=== PATIENT | female | born 1970 | race Caucasian/White ===

== ENCOUNTER 2020-09-13 05:45 | Day surgery (SDC) | payer BC ==
[~2020-09-13] VITALS: Ht 162.6 cm; Wt 91.8 kg
[~2020-09-13 05:45] MED LIST: IRON18 MG; SUDOGEST30 MG PO; ZYRTEC10 M3 PO
[2020-09-13] MEDS ORDERED: IBUPROFEN200 M1 PO (06:10)
[2020-09-13] MEDS ORDERED: AMINO ACID1 EACH PO (06:11)
[2020-09-13] MEDS ORDERED: PROBIOTIC1 EAC1 PO (06:11)
--- NOTE | 2020-09-13 09:27 | NUR ---
CONNECTED WITH PTS' [facility]. JUST GETTING READY TO HEAD HOME TO CARE FOR CHILDREN, THEN RETURN. FEW QUESTIONS, REQUESTED PRAYER. WILL FOLLOW
--- NOTE | 2020-09-13 09:46 | NUR ---
09/13/20 0946 Lee Ann Diaz 0919 PT ARRIVED IN PACU NON RESPONSIVE TO NOXIOUS STIMULI. CHIN LIFT HELD BY RN. 0930 PT REACTIVE. NO CHIN LIFT REQUIRED AT THIS TIME. FALLS BACK TO SLEEP AFTER OPENING EYES. 0945 RESTING. REU. OCC SNORING.
--- NOTE | 2020-09-13 10:19 | NUR ---
PT ARRIVED FROM PACU. REPORT RECIEVED FROM NAZARIO Warren RN. PT RESTING IN LOCKED AND LOWERED BED, SIDE RAILS UP, CALL LIGHT WITHIN REACH. AT THE BEDSIDE. ICE CHIPS PROVIDED, NO FURTHER REQUESTS AT THIS TIME.
--- NOTE | 2020-09-13 11:15 | NUR ---
IN FOR HOURLY ASSESSMENT. PT GABRIEL DISCONTINUED AND OUTPUT MEASURED. PT PROVIDED WITH PUDDING, ICE CHIPS, AND ICE WATER. PT RESTING IN LOCKED AND LOWERED BED, SIDE RAILS UP, CALL LIGHT WITHIN REACH. AT THE BEDSIDE. NO FURTHER REQUESTS AT THIS TIME.
--- NOTE | 2020-09-13 11:50 | NUR ---
PT UP TO USE THE RESTROOM WITH 1 PERSON ASSIST. PT VOIDED 600ML WITH NO COMPLICATIONS. RED DRAINAGED NOTED FROM UMBILICAL SITE UPON AMBULATION. SITE REINFORCED WITH GAUZE AND OPSITE. PT NOW RESTING IN LOCKED AND LOWERED BED, SIDE RAILS UP, CALL LIGHT WITHIN REACH, AT THE BESIDE. DISCHARGE CRITERIA DISCUSSED. NO FURTHER REQUESTS AT THIS TIME.
[2020-09-13] MEDS ORDERED: PERCOCET 5-3251 EACH PO (12:08)
[2020-09-13] MEDS ORDERED: MOTRIN IB200 MG PO (12:08)
[2020-09-13] MEDS ORDERED: ZOFRAN4 MG PO (12:09)
--- NOTE | 2020-09-13 12:50 | NUR ---
DISCHARGE INSTRUCTIONS DISCUSSED WITH PT AND . QUESTIONS AND CONCERNS ADDRESSED. PT LEFT THE UNIT VIA WHEELCHAIR. PT TRANSFERRED INDEPENDENTLY FROM WHEELCHAIR TO VEHICLE WITH NO COMPLICATIONS. TRANSPORTATION PROVIDED BY [facility].
--- NOTE | 2020-09-18 10:20 | PATH ---
[facility] [address] [place], [place] [address] Signed SPECIMEN(S): A UTERUS, CERVIX AND TUBES SPECIMEN SOURCE: A. UTERUS, CERVIX AND TUBES CLINICAL HISTORY: Menorrhagia; incomplete uterovaginal prolapse. Please look for adenomyosis. TLH, BS FINAL PATHOLOGIC DIAGNOSIS: Uterus, cervix, and bilateral fallopian tubes, hysterectomy and bilateral salpingectomy: - Cervix: Chronic inflammation and reactive changes. - Endometrium: Proliferative endometrium. - Myometrium: Adenomyosis. - Serosa: No histopathologic abnormality. - Fallopian tubes: Paratubal cysts. - Negative for malignancy. NAL:cml:C2NR MICROSCOPIC EXAMINATION: Histologic sections of all submitted blocks are examined by light microscopy. These findings, together with the gross examination, support the pathologic diagnosis. GROSS DESCRIPTION: The specimen, labeled "TB," and designated on the requisition "cervix, uterus, bilat fallopian tubes," is received in formalin and consists of a uterus with attached cervix and two detached, fimbriated fallopian tube segments. The uterus with attached cervix weighs 197 g and measures 11.3 x 8.1 x 5.6 cm. The uterine serosa is zepeda, smooth, glistening. The orientation of the uterus is grossly indeterminate. The ectocervical tissue is zepeda, smooth, and occupies a 3.4 x 3.3 cm area. The external os is oval, patent, and 1.7 cm in diameter. The internal os is patent and the cervical stroma is grossly unremarkable. The triangular endometrial cavity measures 5.1 x 2.7 cm. The dark red endometrium is up to 0.1 cm thick. The zepeda, rubbery myometrium is up to 2.6 cm thick and without a discrete mass/lesion. The two fimbriated fallopian tube segments are undesignated, zepeda-purple, have a PATIENT NAME: ANGEL SNYDER PATHOLOGY DATE OF : 74 REPORT #: [id number] PHYSICIAN: NOLA PATHOLOGY PCP: CALI STOCK PAC REPORT IS CONFIDENTIAL AND NOT TO BE RELEASED WITHOUT AUTHORIZATION [facility] [address] [place], [place] [address] Signed patent lumen, and multiple clear fluid-filled, paratubal cysts from less than 0.1-0.7 cm in greatest dimension. The first is inked blue, 5.5 cm long, and 0.7 cm in diameter. The second is 6.0 cm long, and 0.8 cm in diameter. Pediatric Oncology Nurse sections are submitted as follows: (A1-A2) - cervix (A3-A4) - uterine wall (A5) - tubes AI (under the direct supervision of a pathologist) Additional sections of myometrium are submitted in cassette A6-A7 at the request of Dr. Rohan VALE (under the direct supervision of a pathologist) The Gross Description was prepared using a voice recognition system. The report was reviewed for accuracy; however, sound-alike word errors, addition and/or deletions may occur. If there is any question about this report, please contact Client Services. PERFORMING LABORATORY: The technical component was performed by [facility], [address] [place] [id number] (Intake Coordinator: Emily Dumont MD; CLIA# [id number]). [facility] [address], [address] [address] (CLIA# [id number]). Diagnostician: Yandy Madrigal MD Pathologist Electronically Signed 09/18/2020 Copies: ~ PATIENT NAME: ANGEL SNYDER PATHOLOGY DATE OF : 74 REPORT #: [id number] PHYSICIAN: NOLA CHUNG PCP: CALI STOCK PAC REPORT IS CONFIDENTIAL AND NOT TO BE RELEASED WITHOUT AUTHORIZATION
--- NOTE | 2020-09-20 18:30 | OR ---
[facility] [address] [place], [place] [address] Signed DATE OF OPERATION: 09/13/2020 SURGEON: Valeri Lynn MD PRIMARY SPECIAL EDUCATION TEACHER: Nadir Logan D.O. PREOPERATIVE DIAGNOSES: 1. Menorrhagia. 2. Iron-deficiency anemia. POSTOPERATIVE DIAGNOSES: 1. Menorrhagia. 2. Iron-deficiency anemia. 3. Pending pathology. PROCEDURES: 1. Total laparoscopic hysterectomy with bilateral salpingectomy. 2. Cystoscopy. ANESTHESIA: General ET. ESTIMATED BLOOD LOSS: Approximately 75 mL. DRAINS: Randle catheter. INDICATIONS AND FINDINGS: The patient is a 50-year-old female, who has a long history of severe menorrhagia. She has also had significant iron-deficiency anemia. She has required long-term iron therapy as well as several transfusions for her anemia. She was tried with control pills, which had minimal impact on her bleeding, it also impacted her diabetes negatively. She did not wish to undergo a trial of the Mirena. She wished to undergo surgical intervention. At the time of surgery, her uterus was top-normal size, it sounded to 11 cm. The pelvis itself was completely normal. DESCRIPTION OF PROCEDURE: The patient was prepped and draped in the dorsal lithotomy position. A weighted Electronically Signed By: VALERI LYNN MD 09/20/20 1830 PATIENT NAME: ANGEL SNYDER OPERATIVE REPORT DATE OF : 74 REPORT #: [id number] PHYSICIAN: VALERI LYNN MD PCP: KIYA STOCK PAC REPORT IS CONFIDENTIAL AND NOT TO BE RELEASED WITHOUT AUTHORIZATION [facility] [address] [place], [place] [address] Signed speculum was placed and the anterior lip of the cervix was visualized and grasped with a single-tooth tenaculum. The uterus was sounded to 11 cm. The endocervical canal was then dilated, and the VCare cannula inserted and the balloon inflated at the fundus. The tenaculum and speculum removed and the cup was fitted over the cervix and a locking cap was fitted into place. Attention was then directed above. The infraumbilical area was injected with 0.5% Marcaine plain. An incision was made with a knife. Each layer was then serially elevated and incised until the fascia was opened and identified and stay sutures were placed. The peritoneum was opened sharply and a Romeo cannula was placed and the balloon inflated and tied into place. Placing the scope, confirmed proper positioning. CO2 was then introduced into the abdomen. When the abdomen was appropriately distended, the secondary ports were placed, these were placed laterally. These were placed slightly below the level of the umbilicus. These areas were transilluminated, injected with the Marcaine, incision made with a knife and the trocars placed under direct vision. The left port was a 5 mm port. The right was a Veress needle, followed by the expanding port. Following this, the pelvis was visualized, the planned procedure appeared appropriate. The patient's left tube was then grasped and it was excised by serially coagulating and dividing the mesosalpinx using the LigaSure [place] device. It was transected at the cornu and removed through the right port. Following this, the patient's left round ligament and utero-ovarian ligament were serially coagulated and divided. At this point, the anterior leaf of the peritoneum was incised allowing for partial creation of the bladder flap. The peritoneum was taken down posteriorly as well. She had a very large bundle of the uterine vessels, and these were serially coagulated and divided as well. Further dissection was done both posteriorly and anteriorly. Following this, attention was directed to the right side. The tube was removed by serially coagulating and dividing the mesosalpinx and dividing at the cornua. The round ligament was serially coagulated and divided, followed by the utero-ovarian pedicle. The anterior leaf of the peritoneum was then incised allowing for final creation of the bladder flap. The peritoneum was taken down posteriorly as well. The uterine vessels again had a very large bundle, and these were coagulated and divided with good hemostasis noted. Further dissection was done both posteriorly and anteriorly and it was felt at that point that the specimen could be removed. The pelvis was irrigated and all blood removed at this point. The Sonicision device was used to excise the specimen. It was begun posteriorly and wrapped around to the patient's left side anteriorly and again posteriorly and around anteriorly. Following this, the cervix was grasped and the specimen was removed intact vaginally. Following this, a lap was placed into a glove and placed into the vagina to allow the pneumoperitoneum to reform. Attention was directed above again, and the abdomen was copiously irrigated and inspected. There was some bleeding points near the patient's right uterine vessels, and this was controlled using the spatula tip cautery. The cuff itself was then closed using the Endo Stitch. It was begun at the patient's right uterosacral ligament, taking care to incorporate the vaginal mucosa both posteriorly and anteriorly and run to the patient's left uterosacral ligament and then back to the center. Following this, it Electronically Signed By: VALERI LYNN MD 09/20/20 1830 PATIENT NAME: ANGEL SNYDER OPERATIVE REPORT DATE OF : 74 REPORT #: [id number] PHYSICIAN: VALERI LYNN MD PCP: KIYA STOCK PAC REPORT IS CONFIDENTIAL AND NOT TO BE RELEASED WITHOUT AUTHORIZATION [facility] [address] [place], [place] [address] Signed appeared that there may be a hematoma near the left angle. This was observed, and there was no evidence of any ongoing bleeding in this area or re-formation. It was felt that this may be just from fluid. Because of the extent of the raw area, Tisseel was sprayed over the cuff and the pelvic sidewalls to aid further in hemostasis. Following this, the pneumoperitoneum was released and the instruments removed from the abdomen. The fascial incision of the umbilicus was re-identified, was closed with a running suture of 0-Vicryl. The skin incisions were closed with subcuticular sutures of 3-0 Vicryl Rapide. Following this, attention was directed below. The lap tape was removed from the vagina. The cystoscopy was begun. The Randle was removed and cystoscopy was done using the 30-degree scope. She had received IV fluorescein. There was no evidence of any injury to the bladder. Free flow of fluorescein stained urine was seen to come from each of the ureteral orifices. Following this, the bladder was drained and the Randle catheter replaced. The patient was then taken to the recovery room in good condition. All sponge and needle counts were correct. She tolerated the procedure well. Valeri Lynn MD PJW/MODL /[id number] cc: DO Kiya Jimenez PA-C Copies: NADIR LOGAN ERIKA PAC ~ Electronically Signed By: VALERI LYNN MD 09/20/20 1830 PATIENT NAME: ANGEL SNYDER OPERATIVE REPORT DATE OF : 74 REPORT #: [id number] PHYSICIAN: VALERI LYNN MD PCP: KIYA STOCK REPORT IS CONFIDENTIAL AND NOT TO BE RELEASED WITHOUT AUTHORIZATION
== END 2020-09-13 12:50 | disposition home or self-care (01) ==
LOC: DS 05:45
PROVIDERS: ATTEND Obstetrics & Gynecology
PROC: 0UT94ZZ Resection of Uterus, Percutaneous Endoscopic Approach (ICD-10-PCS; principal; 2020-09-13 06:45)
PROC: 0UT74ZZ Resection of Bilateral Fallopian Tubes, Percutaneous Endoscopic Approach (ICD-10-PCS; 2020-09-13 06:45)
DX: N80.0 Endometriosis of uterus (principal); N72 Inflammatory disease of cervix uteri; N83.8 Other noninflammatory disorders of ovary, fallopian tube and broad ligament; D50.0 Iron deficiency anemia secondary to blood loss (chronic); E11.9 Type 2 diabetes mellitus without complications; G47.33 Obstructive sleep apnea (adult) (pediatric); J45.20 Mild intermittent asthma, uncomplicated; Z79.899 Other long term (current) drug therapy
CPT/HCPCS: 00840; J0330; J0694; J1100; J1644; J1885; J2001; J2250; J2405; J2704; J2765; J3475; J7121